=== PATIENT | female | born 1975 | race Two or more races ===

== ENCOUNTER 2018-02-04 10:22 | Emergency (ER) | payer SELFPAY ==
[2018-02-04 10:28] VITALS: BP 112/61; BMI 20.5
--- NOTE | 2018-02-04 10:47 | DR.GENAD ---
HPI - PCP Primary Care Physician: none - Complaint/Symptoms Chief Complaint Doctors Comments: Patient presents with complaint of LLQ pain for two days, worse today. Denies N/V or fever. PMH negative. Chief Complaint:: Left sided lower abdomen pain since friday night - Source History Provided: Patient - Mode of Arrival Mode of Arrival: Ambulatory - Timing Onset of Chief Complaint: 02/02/18 PMH - PMH Past Medical History: No Past Surgical History: No - Family History History of Family Medical Conditions: No - Social History Does patient currently use any type of tobacco product: No Have you used tobacco products in the last 12 months: No Type of Tobacco Use: None Does any household member use tobacco: No Alcohol Use: None Do you use any recreational Drugs:: No Lives With: Family Lives Where: Home - infectious screening In the last 2 months have you had wt loss of >10#?: NO Have you had fever, night sweats or hemotysis?: No Have you traveled outside the country in the last 6 months?: No Isolation: Standard ROS - Review of Systems Eyes: No Symptoms Reported ENTM: No Symptoms Reported Respiratoy: No Symptoms Reported Cardiovascular: No Symptoms Reported Gastrointestinal/Abdominal: No Symptoms Reported Genitourinary: No Symptoms Reported Neurological: No Symptoms Reported Musculoskeletal: No Symptoms Reported Integumentary: No Symptoms Reported Hematologic/Lymphatic: No Symptoms Reported Endocrine: No Symptoms Reported Psychiatric: No Symptoms Reported All Other Systems: Reviewed and Negative PE - Vital Signs Vitals: Temperature 98.5 F Pulse Rate 70 Respiratory Rate 18 Blood Pressure 112/61 O2 Sat by Pulse Oximetry 99 - General Limitations: Language Barrier General Appearance: Alert, In No Apparent Distress - Head Head Exam: Normal Inspection, Atraumatic - Eyes Eye exam: Normal Appearance, PERRL, EOMI - ENT ENT Exam: Normal Exam, Mucous Membranes Moist External Ear Exam: Normal External Inspection TM/Canal Exam: Bilateral Normal Nose Exam: Normal Nose Exam Mouth Exam: Normal Inspection Throat Exam: Normal Inspection - Neck Neck Exam: Normal Inspection - Chest Chest Inspection: Normal Inspection - Respiratory Respiratory Exam: Normal Lung Sounds Bilat Respiratory Exam: Bilateral Clear to Auscultation - Cardiovascular Cardiovascular Exam: Regular Rate, Normal Rhythm - Abdominal Exam Abdominal Exam: Normal Inspection, Normal Bowel Sounds Abdominal Tenderness: RLQ, Suprapubic - Extremities Extremities Exam: Normal Inspection, Full ROM - Back Back Exam: Normal Inspection - Neurologic Neurological Exam: Alert, Oriented X3, CN II-XII Intact - Psychiatric Psychiatric Exam: Normal Affect - Skin Skin Exam: Warm, Dry, Intact ROR - Labs Reviewed Result Diagrams: 02/04/18 11:03 02/04/18 11:03 Laboratory: WBC 6.3 X10^3/uL (3.6-10.0) 02/04/18 11:03 RBC 4.22 X10^6/uL (3.5-5.4) 02/04/18 11:03 Hgb 13.4 g/dL (12.0-16.0) 02/04/18 11:03 Hct 38.9 % (36.0-47.0) 02/04/18 11:03 MCV 92.3 fL (80.0-100.0) 02/04/18 11:03 MCH 31.8 pg (27.0-34.0) 02/04/18 11:03 MCHC 34.4 g/dL (33.0-35.0) 02/04/18 11:03 RDW 11.7 % (11.6-16.5) 02/04/18 11:03 Plt Count 241 X10^3/uL (150.0-450.0) 02/04/18 11:03 MPV 8.9 fL (7.4-11.0) 02/04/18 11:03 Neut % (Auto) 69.0 % (42.0-75.0) 02/04/18 11:03 Lymph % (Auto) 20.8 % (21.0-51.0) L 02/04/18 11:03 [place] % (Auto) 8.5 % (0.0-13.0) 02/04/18 11:03 Eos % (Auto) 0.8 % (0.9-2.9) L 02/04/18 11:03 Baso % (Auto) 0.9 % (0.2-1.0) 02/04/18 11:03 Neut # (Auto) 4.3 x10^3/uL (2.2-4.8) 02/04/18 11:03 Lymph # (Auto) 1.3 X10^3/uL (1.3-2.9) 02/04/18 11:03 [place] # (Auto) 0.5 x10^3/uL (0.3-0.8) 02/04/18 11:03 Eos # (Auto) 0.1 x10^3/uL (0.0-0.2) 02/04/18 11:03 Baso # (Auto) 0.1 X10^3/uL (0.0-0.1) 02/04/18 11:03 Absolute Nucleated RBC 0.0 /100WBC 02/04/18 11:03 Sodium 141 mmol/L (136-145) 02/04/18 11:03 Corrected Sodium TNP 02/04/18 11:03 Potassium 3.6 mmol/L (3.5-5.1) 02/04/18 11:03 Chloride 105 mmol/L (98-107) 02/04/18 11:03 Carbon Dioxide 26.0 mmol/L (21-32) 02/04/18 11:03 BUN 9 mg/dL (7-18) 02/04/18 11:03 Creatinine 0.66 mg/dL (0.55-1.02) 02/04/18 11:03 Est GFR (MDRD) Af Amer > 60 (>60) 02/04/18 11:03 Est GFR (MDRD) Non-Af > 60 (>60) 02/04/18 11:03 Glucose 81 mg/dL (65-99) 02/04/18 11:03 Calcium 8.6 mg/dL (8.5-10.1) 02/04/18 11:03 Corrected Calcium TNP 02/04/18 11:03 Total Bilirubin 0.30 mg/dL (0.2-1.0) 02/04/18 11:03 AST 18 Units/L (15-37) 02/04/18 11:03 ALT 32 Units/L (12-78) 02/04/18 11:03 Alkaline Phosphatase 87 Units/L (46-116) 02/04/18 11:03 C-Reactive Protein 1.10 mg/L (0-3.0) 02/04/18 11:03 Total Protein 7.9 g/dL (6.4-8.2) 02/04/18 11:03 Albumin 4.1 g/dL (3.4-5.0) 02/04/18 11:03 Globulin 3.8 g/dL (2.5-4.5) 02/04/18 11:03 Albumin/Globulin Ratio 1.1 Ratio (1.1-2.1) 02/04/18 11:03 Specimen Type Random urine 02/04/18 10:54 Urine Color Yellow (YELLOW) 02/04/18 10:54 Urine Appearance Slightly hazy (CLEAR) 02/04/18 10:54 Urine pH 7.0 (5.0 - 8.0) 02/04/18 10:54 Ur Specific [place] 1.015 (1.000-1.030) 02/04/18 10:54 Urine Protein Negative (NEGATIVE) 02/04/18 10:54 Urine Glucose (UA) Negative (NEGATIVE) 02/04/18 10:54 Urine Ketones Negative (NEGATIVE) 02/04/18 10:54 Urine Occult Blood Negative (NEGATIVE) 02/04/18 10:54 Urine Nitrite Negative (NEGATIVE) 02/04/18 10:54 Urine Bilirubin Negative (NEGATIVE) 02/04/18 10:54 Urine Urobilinogen Normal (NORMAL) 02/04/18 10:54 Ur Leukocyte Esterase Negative (NEGATIVE) 02/04/18 10:54 - XRAY XRAY Interpreted by: Radiologist (KUB: No evidence for acute abdominal pathlogy identified), Self (Stool asending transverse and desending colon) - Diagnosis Discharge Problem: Constipation Qualifiers: Constipation type: slow transit constipation Qualified Code(s): K59.01 - Slow transit constipation - Discharge Plan Condition: Stable - Follow ups/Referrals Follow ups/Referrals: NFD,None [Primary Care Provider] - 3 days - Instructions
[2018-02-04] MEDS ORDERED: TORADOL 30 MG VIAL IM ONE (10:48)
[2018-02-04] MEDS ORDERED: TORADOL 30 MG VIAL ONE (10:50)
[2018-02-04 10:59] LABS: BILIRUBIN,URINE NEGATIVE (NEGATIVE); BLOOD/HEMOGLOBIN,URINE NEGATIVE (NEGATIVE); GLUCOSE, URINE NEGATIVE (NEGATIVE); KETONES,URINE NEGATIVE (NEGATIVE); LEUKOCYTE ESTERASE ,URINE NEGATIVE (NEGATIVE); NITRITES,URINE NEGATIVE (NEGATIVE); PROTEIN,URINE NEGATIVE (NEGATIVE); UROBILINOGEN,URINE NORMAL (NORMAL)
[2018-02-04 11:04] LABS: APPEARANCE,URINE SLIGHTLY HAZY (CLEAR); COLOR,URINE YELLOW (YELLOW)
--- NOTE | 2018-02-04 11:08 | RAD ---
HISTORY: Left lower quadrant pain Study: KUB Comparison: None Findings: Evaluation of the abdomen demonstrates a normal bowel gas pattern. No pathological soft tissue mass or calcification can be observed. The bony structures are grossly intact. IMPRESSION: 1. No evidence for acute abdominal pathology identified. Reported By:
[2018-02-04 11:21] LABS: BASOPHILS # (AUTO) 0.1 X10^3/uL (0.0-0.1); BASOPHILS % (AUTO) 0.9 % (0.2-1.0); EOSINOPHILS # (AUTO) 0.1 x10^3/uL (0.0-0.2); EOSINOPHILS % (AUTO) 0.8 % (0.9-2.9); HEMATOCRIT 38.9 % (36.0-47.0); HEMOGLOBIN 13.4 g/dL (12.0-16.0); LYMPHOCYTES # (AUTO) 1.3 X10^3/uL (1.3-2.9); LYMPHOCYTES % (AUTO) 20.8 % (21.0-51.0); MEAN CORPUSCULAR HEMOGLOBIN 31.8 pg (27.0-34.0); MEAN CORPUSCULAR HGB CONC 34.4 g/dL (33.0-35.0); MEAN CORPUSCULAR VOLUME 92.3 fL (80.0-100.0); MEAN PLATELET VOLUME 8.9 fL (7.4-11.0); MONOCYTES # (AUTO) 0.5 x10^3/uL (0.3-0.8); MONOCYTES % (AUTO) 8.5 % (0.0-13.0); NEUTROPHILS # (AUTO) 4.3 x10^3/uL (2.2-4.8); PLATELET COUNT 241 X10^3/uL (150.0-450.0); RED BLOOD COUNT 4.22 X10^6/uL (3.5-5.4); RED CELL DISTRIBUTION WIDTH 11.7 % (11.6-16.5); WHITE BLOOD COUNT 6.3 X10^3/uL (3.6-10.0)
[2018-02-04 11:41] LABS: ALANINE AMINOTRANSFERASE 32 Units/L (12-78); ALBUMIN 4.1 g/dL (3.4-5.0); ALKALINE PHOSPHATASE 87 Units/L (46-116); ASPARTATE AMINO TRANSFERASE 18 Units/L (15-37); BLOOD UREA NITROGEN 9 mg/dL (7-18); CALCIUM 8.6 mg/dL (8.5-10.1); CHLORIDE 105 mmol/L (98-107); CREATININE 0.66 mg/dL (0.55-1.02); SODIUM 141 mmol/L (136-145); TOTAL PROTEIN 7.9 g/dL (6.4-8.2); eGFR BLACK RACES > 60 (>60); eGFR NON BLACK RACES > 60 (>60)
== END 2018-02-04 12:04 | disposition home or self-care (01) ==
LOC: ER 10:34
DX: K59.01 Slow transit constipation (principal)
CPT/HCPCS: 36415; 74018; 80053; 81003; 85025; 86140; 96372; 99282; J1885